=== PATIENT | female | born 1990 | race Caucasian/White ===

== ENCOUNTER → 2019-09-13 | Outpatient (REF) | payer OTHER | LOC: M SFHCWAGY 10:37 | PROVIDERS: ATTEND Obstetrics & Gynecology | DX: Z12.4 Encounter for screening for malignant neoplasm of cervix (principal) | CPT/HCPCS: 87624; G0123 ==

== ENCOUNTER → 2019-10-24 | Outpatient (REF) | payer OTHER | LOC: M SFHCWAGY 12:06 | PROVIDERS: ATTEND Nurse Practitioner Women's Health | DX: B00.9 Herpesviral infection, unspecified (principal) ==

== ENCOUNTER → 2020-06-01 | Outpatient (REF) | payer OTHER ==
[2020-06-01 14:25] LABS: HCG, SERUM QUALITATIVE NEGATIVE (NEGATIVE)
[2020-06-01 14:37] LABS: FREE T4 1.08 NG/DL (0.76-1.46)
== END ==
LOC: M PLALAB 10:14
PROVIDERS: ATTEND Nurse Practitioner Women's Health
DX: N92.6 Irregular menstruation, unspecified (principal); R53.83 Other fatigue
CPT/HCPCS: 36415; 81025; 84439; 84443; 84703; G0463

== ENCOUNTER → 2020-12-11 | Outpatient (REF) | payer OTHER | LOC: M SFHCWAGY 17:35 | PROVIDERS: ATTEND Obstetrics & Gynecology | DX: Z01.419 Encounter for gynecological examination (general) (routine) without abnormal findings (principal) ==

== ENCOUNTER → 2021-01-07 | Outpatient (REF) | payer OTHER ==
[2021-01-07 13:43] LABS: APPEARANCE, URINE CLEAR (CLEAR); BACTERIA, URINE AUTO NEGATIVE (NEGATIVE); BILIRUBIN, URINE AUTO NEGATIVE (NEGATIVE); BLOOD, URINE BLOOD 1+ (NEGATIVE); COLOR, URINE YELLOW (YELLOW); GLUCOSE, URINE (UA) AUTO NEGATIVE (NEGATIVE); KETONE, URINE AUTO NEGATIVE (NEGATIVE); LEUKOCYTE ESTERASE, URINE AUTO 2+ (NEGATIVE); NITRITE, URINE AUTO NEGATIVE (NEGATIVE); PROTEIN, URINE AUTO NEGATIVE (NEGATIVE); RBC, URINE AUTO 0 /HPF (0-3); SPECIFIC GRAVITY URINE AUTO 1.009 (1.002-1.035); SQUAMOUS EPITHELIAL CELL UR AU 4 /HPF (0-6); UROBILINOGEN, URINE AUTO 0.2 mg/dL (0.0-2.0); WBC, URINE AUTO 2 /HPF (0-3)
[2021-01-07 19:06] LABS: GC DNA AMPLIFICATION NEGATIVE (NEGATIVE)
== END ==
LOC: M SFHCWAGY 12:56
PROVIDERS: ATTEND Obstetrics & Gynecology
DX: R10.31 Right lower quadrant pain (principal)
CPT/HCPCS: 81001; 81002; 81025; 87086; 87661; G0463